=== PATIENT | male | born 1995 | race Caucasian/White ===

== ENCOUNTER 2019-01-23 01:14 | Emergency (ER) | payer BC, OTHER ==
[~2019-01-23] VITALS: Ht 177.8 cm; Wt 65.9 kg
[~2019-01-23 01:14] MED LIST: IBUP-1051 PO
--- NOTE | 2019-01-23 01:20 | NUR ---
RPD AT PT BEDSIDE
[2019-01-23 02:06] VITALS: BP 148/97
== END 2019-01-23 02:29 ==
LOC: ER 01:14
DX: R51 Headache (principal); F12.90 Cannabis use, unspecified, uncomplicated; F10.99 Alcohol use, unspecified with unspecified alcohol-induced disorder; Z79.899 Other long term (current) drug therapy; V89.2XXA Person injured in unspecified motor-vehicle accident, traffic, initial encounter; Y93.89 Activity, other specified; Y92.488 Other paved roadways as the place of occurrence of the external cause; Y99.8 Other external cause status; Y90.9 Presence of alcohol in blood, level not specified
CPT/HCPCS: 99283